=== PATIENT | male | born 1975 | race Hispanic/Latino ===

== ENCOUNTER 2021-01-10 14:23 | Inpatient (IN) | payer SELFPAY ==
[~2021-01-10 14:23] MED LIST: Iopamidol-370 76% 500 ML 1 ML ONE
[2021-01-10] MEDS ORDERED: Boostrix 0.5 ML (Tdap) VIAL ONE (14:43)
[2021-01-10 14:45] LABS: #Basophils 0.1 thou/uL (0.0-0.2); #Eosinphils 0.1 thou/uL (0.0-0.7); #Monocytes 0.7 thou/uL (0.11-0.59); #Neutrophils 5.3 thou/uL (1.40-6.50); %Basophils 0.9 % (0.0-1.0); %Eosinophils 0.7 % (0.0-10.0); %Lymphocytes 24.4 % (21.0-51.0); %Monocytes 8.9 % (0.0-10.0); %Neutrophils 65.1 % (42.0-75.0); Hemoglobin 6.4 g/dL (14.0-18.0); Mean Corpuscular HGB CONC 34.2 g/dL (32.0-36.0); Mean Corpuscular Hemoglobin 29.7 pg (27.0-31.0); Mean Corpuscular Volume 86.8 fL (78.0-98.0); Mean Platelet Volume 9.3 fL (7.4-10.4); Platelet Count 47 thou/uL (130-400); RBC Distribution Width 15.4 % (11.5-14.5); Red Blood Cell (RBC) Count 2.14 mill/uL (4.70-6.10); White Blood Cell (WBC) Count 8.1 thou/uL (4.8-10.8)
[2021-01-10 14:53] LABS: Anisocytosis SLIGHT = 6-15 cells (100X) (0-5/hpf); MDiff Complete? YES; Platelet Morphology Comment Appears Decreased; Polychromasia SLIGHT = 2-3 cells (100X) (0-2/hpf)
[2021-01-10 14:58] LABS: PTT 42.2 sec (22.9-36.1); Prothrombin Time 23.3 sec (12.0-14.7)
[2021-01-10 15:02] LABS: ALT (SGPT) 23 U/L (8-55); AST (SGOT) 126 U/L (5-34); Alkaline Phosphatase 120 U/L (40-110); Anion Gap 16 mmol/L (10-20); BUN (Urea Nitrogen) 5 mg/dL (8.9-20.6); Bilirubin, Total 1.5 mg/dL (0.2-1.2); Calc. Creatinine Clearance 0 mL/min (70-130); Calcium 6.5 mg/dL (7.8-10.44); Carbon Dioxide 17 mmol/L (22-29); Chloride 107 mmol/L (98-107); Globulin 2.9 g/dL (2.4-3.5); Glucose 171 mg/dL (70-105); Lipase 63 U/L (8-78); Potassium 3.7 mmol/L (3.5-5.1); Protein, Total 4.9 g/dL (6.0-8.3); Sodium 136 mmol/L (136-145)
[2021-01-10] MEDS ORDERED: Ondansetron PF 4 MG/2 ML Vial ONE (15:57)
[2021-01-10 16:25] LABS: SARS-CoV-2 NAA Rapid Test DETECTED (NotDetected)
[2021-01-10] MEDS ORDERED: Acetaminophen 325 MG TAB PO PRN (16:38)
[2021-01-10] MEDS ORDERED: Octreotide Acetate 50 MCG/ML AMP IVPB SCH (16:45)
[2021-01-10] MEDS ORDERED: Pantoprazole 40 MG VIAL IVP SCH (16:45)
[2021-01-10] MEDS: Sodium Chloride 0.9% 1,000 ML IV SCH ×2 (18:07→23:12)
[2021-01-10] MEDS: Octreotide Acetate 1,250 MCG in Sodium Chloride 0.9% 250 ML 250 ML IVPB SCH (18:08)
[2021-01-10] MEDS: Pantoprazole 80 MG in Sodium Chloride 0.9% 100 ML IVPB SCH (18:08)
[2021-01-10] MEDS: cefTRIAXone\\ROCEPHIN 1 GM in Sodium Chloride 0.9% 100 ML IVPB SCH (18:09)
[2021-01-10 18:24] VITALS: BMI 30.9
[2021-01-10 18:25] LABS: Hemoglobin 7.4 g/dL (14.0-18.0)
[2021-01-10 18:28] LABS: Lactic Acid 3.7 mmol/L (0.5-2.2)
[2021-01-10] MEDS ORDERED: Lorazepam 2 MG/ML VIAL SLOW IVP PRN (18:49)
[2021-01-10 21:21] LABS: Hemoglobin 7.3 g/dL (14.0-18.0); Platelet Count 13 thou/uL (130-400)
[2021-01-11 00:12] LABS: #Lymphocytes 0.4 thou/uL (1.20-3.40); #Monocytes 0.2 thou/uL (0.11-0.59); #Neutrophils 1.8 thou/uL (1.40-6.50); %Basophils 0.7 % (0.0-1.0); %Eosinophils 0.2 % (0.0-10.0); %Lymphocytes 15.4 % (21.0-51.0); %Neutrophils 74.7 % (42.0-75.0); Mean Corpuscular HGB CONC 34.4 g/dL (32.0-36.0); Mean Corpuscular Hemoglobin 30.1 pg (27.0-31.0); Mean Corpuscular Volume 87.7 fL (78.0-98.0); Mean Platelet Volume 10.2 fL (7.4-10.4); Platelet Count 19 thou/uL (130-400); Red Blood Cell (RBC) Count 2.33 mill/uL (4.70-6.10); White Blood Cell (WBC) Count 2.4 thou/uL (4.8-10.8)
[2021-01-11 00:35] LABS: Lactic Acid 3.4 mmol/L (0.5-2.2)
[2021-01-11] MEDS: Pantoprazole 80 MG in Sodium Chloride 0.9% 100 ML IVPB SCH ×3 (03:08→20:40)
[2021-01-11 03:33] LABS: #Lymphocytes 0.5 thou/uL (1.20-3.40); #Monocytes 0.2 thou/uL (0.11-0.59); #Neutrophils 1.4 thou/uL (1.40-6.50); %Eosinophils 0.1 % (0.0-10.0); %Lymphocytes 23.9 % (21.0-51.0); %Monocytes 10.2 % (0.0-10.0); %Neutrophils 65.8 % (42.0-75.0); Hemoglobin 7.2 g/dL (14.0-18.0); Mean Corpuscular HGB CONC 35.2 g/dL (32.0-36.0); Mean Corpuscular Hemoglobin 30.8 pg (27.0-31.0); Mean Corpuscular Volume 87.7 fL (78.0-98.0); Mean Platelet Volume 9.3 fL (7.4-10.4); Platelet Count 21 thou/uL (130-400); RBC Distribution Width 13.9 % (11.5-14.5); Red Blood Cell (RBC) Count 2.32 mill/uL (4.70-6.10); White Blood Cell (WBC) Count 2.2 thou/uL (4.8-10.8)
[2021-01-11 03:40] LABS: INR-International Normal Ratio 1.4; PTT 38.4 sec (22.9-36.1); Prothrombin Time 17.6 sec (12.0-14.7)
[2021-01-11 03:50] LABS: ALT (SGPT) 25 U/L (8-55); AST (SGOT) 108 U/L (5-34); Albumin 2.3 g/dL (3.5-5.0); Alkaline Phosphatase 99 U/L (40-110); Anion Gap 8 mmol/L (10-20); BUN (Urea Nitrogen) 8 mg/dL (8.9-20.6); Bilirubin, Total 1.8 mg/dL (0.2-1.2); Calc. Creatinine Clearance 201 mL/min (70-130); Calcium 6.5 mg/dL (7.8-10.44); Carbon Dioxide 25 mmol/L (22-29); Chloride 109 mmol/L (98-107); Globulin 2.6 g/dL (2.4-3.5); Glucose 138 mg/dL (70-105); Potassium 3.7 mmol/L (3.5-5.1); Protein, Total 4.9 g/dL (6.0-8.3); Sodium 138 mmol/L (136-145)
[2021-01-11 06:20] LABS: #Lymphocytes 0.5 thou/uL (1.20-3.40); #Monocytes 0.2 thou/uL (0.11-0.59); #Neutrophils 1.4 thou/uL (1.40-6.50); %Eosinophils 0.2 % (0.0-10.0); %Monocytes 7.3 % (0.0-10.0); %Neutrophils 66.6 % (42.0-75.0); Hemoglobin 7.4 g/dL (14.0-18.0); Mean Corpuscular HGB CONC 34.1 g/dL (32.0-36.0); Mean Corpuscular Hemoglobin 29.9 pg (27.0-31.0); Mean Corpuscular Volume 87.6 fL (78.0-98.0); Mean Platelet Volume 9.7 fL (7.4-10.4); Platelet Count 23 thou/uL (130-400); RBC Distribution Width 13.8 % (11.5-14.5); Red Blood Cell (RBC) Count 2.48 mill/uL (4.70-6.10)
[2021-01-11] MEDS ORDERED: Fentanyl 100 MCG/2 ML VIAL ONE (08:28)
[2021-01-11] MEDS ORDERED: Ketamine 50 MG/ML (10ML VIAL) ONE (08:28)
[2021-01-11] MEDS ORDERED: Midazolam HCl 2 mg/2 ml Vial ONE (08:28)
[2021-01-11] MEDS ORDERED: Phenylephrine 10 MG/ML VIAL ONE (08:29)
[2021-01-11] MEDS ORDERED: Dexamethasone 20 MG/5 ML VIAL ONE (08:45)
[2021-01-11] MEDS ORDERED: Rocuronium Bromide 10 MG/ML (10ML VIAL) ONE (08:45)
[2021-01-11] MEDS ORDERED: Ondansetron PF 4 MG/2 ML Vial ONE (08:45)
[2021-01-11] MEDS ORDERED: Succinylcholine 200 MG/10 ml SYRINGE FS ONE (08:45)
[2021-01-11] MEDS ORDERED: SUGAMMADEX SODIUM 200 MG/2 ML VIAL ONE (09:01)
[2021-01-11] MEDS: Sodium Chloride 0.9% 1,000 ML IV SCH ×3 (10:13→22:33)
[2021-01-11] MEDS: Octreotide Acetate 1,250 MCG in Sodium Chloride 0.9% 250 ML 250 ML IVPB SCH (11:01)
[2021-01-11] MEDS: Ondansetron PF 4 MG/2 ML Vial IVP PRN ×2 (11:41→18:37)
[2021-01-11] MEDS: Multivitamins, Adult 10 ML, Folic Acid 1 MG, Thiamine HCl 100 MG in Dextrose 5 %-0.45 %... IV SCH (12:36)
[2021-01-11] MEDS: Thiamine 100 MG TAB PO SCH (12:37)
[2021-01-11] MEDS: Zinc Sulfate 220 MG CAP PO SCH (12:37)
[2021-01-11] MEDS: Ascorbic Acid 500 mg Chewable Tablet PO SCH (12:37)
[2021-01-11 13:31] LABS: Hemoglobin 9.1 g/dL (14.0-18.0); Platelet Count 19 thou/uL (130-400)
[2021-01-11] MEDS: cefTRIAXone\\ROCEPHIN 1 GM in Sodium Chloride 0.9% 100 ML IVPB SCH (15:26)
[2021-01-11 18:12] LABS: Hemoglobin 9.3 g/dL (14.0-18.0); Platelet Count 22 thou/uL (130-400)
[2021-01-11] MEDS: Cholecalciferol 1,000 UNITS (25 MCG) TAB PO SCH (20:29)
[2021-01-11 23:49] LABS: Hemoglobin 8.8 g/dL (14.0-18.0); Platelet Count 24 thou/uL (130-400)
[2021-01-12 03:53] LABS: Reticulocyte Count 3.4 % (0.5-1.5)
[2021-01-12 04:16] LABS: ALT (SGPT) 25 U/L (8-55); AST (SGOT) 100 U/L (5-34); Albumin 2.6 g/dL (3.5-5.0); Alkaline Phosphatase 102 U/L (40-110); Anion Gap 9 mmol/L (10-20); BUN (Urea Nitrogen) 7 mg/dL (8.9-20.6); Calc. Creatinine Clearance 185 mL/min (70-130); Calcium 6.8 mg/dL (7.8-10.44); Carbon Dioxide 23 mmol/L (22-29); Chloride 107 mmol/L (98-107); Globulin 2.9 g/dL (2.4-3.5); Glucose 125 mg/dL (70-105); Iron 24 ug/dL (65-175); Potassium 3.7 mmol/L (3.5-5.1); Protein, Total 5.5 g/dL (6.0-8.3); Sodium 135 mmol/L (136-145)
[2021-01-12] MEDS: Sodium Chloride 0.9% 1,000 ML IV SCH ×2 (08:16→16:41)
[2021-01-12] MEDS: Octreotide Acetate 1,250 MCG in Sodium Chloride 0.9% 250 ML 250 ML IVPB SCH (09:28)
[2021-01-12] MEDS: Pantoprazole 80 MG in Sodium Chloride 0.9% 100 ML IVPB SCH (10:15)
[2021-01-12] MEDS: Zinc Sulfate 220 MG CAP PO SCH (12:46)
[2021-01-12] MEDS: Thiamine 100 MG TAB PO SCH (12:46)
[2021-01-12] MEDS: Ascorbic Acid 500 mg Chewable Tablet PO SCH (12:46)
[2021-01-12] MEDS: Multivitamins, Adult 10 ML, Folic Acid 1 MG, Thiamine HCl 100 MG in Dextrose 5 %-0.45 %... IV SCH (13:34)
[2021-01-12] MEDS: cefTRIAXone\\ROCEPHIN 1 GM in Sodium Chloride 0.9% 100 ML IVPB SCH (16:41)
[2021-01-12] MEDS ORDERED: Ferrous Sulfate 325 MG TAB PO SCH (19:30)
[2021-01-12] MEDS: Cholecalciferol 1,000 UNITS (25 MCG) TAB PO SCH (20:47)
[2021-01-13 05:58] LABS: Platelet Count 26 thou/uL (130-400)
[2021-01-13] MEDS: Ferrous Sulfate 325 MG TAB PO SCH ×2 (08:17→16:56)
[2021-01-13] MEDS: Ascorbic Acid 500 mg Chewable Tablet PO SCH (11:12)
[2021-01-13] MEDS: Zinc Sulfate 220 MG CAP PO SCH (11:12)
[2021-01-13] MEDS: Multivitamins, Adult 10 ML, Folic Acid 1 MG, Thiamine HCl 100 MG in Dextrose 5 %-0.45 %... IV SCH (11:23)
[2021-01-13] MEDS ORDERED: Thiamine 100 MG TAB PO SCH (12:00)
[2021-01-13] MEDS: Octreotide Acetate 1,250 MCG in Sodium Chloride 0.9% 250 ML 250 ML IVPB SCH (15:04)
[2021-01-13] MEDS: cefTRIAXone\\ROCEPHIN 1 GM in Sodium Chloride 0.9% 100 ML IVPB SCH (16:56)
[2021-01-13] MEDS: Cholecalciferol 1,000 UNITS (25 MCG) TAB PO SCH (20:19)
[2021-01-14 06:41] LABS: Platelet Count 21 thou/uL (130-400)
[2021-01-14] MEDS: Ferrous Sulfate 325 MG TAB PO SCH (08:33)
[2021-01-14 11:13] VITALS: TEMP 98.3
[2021-01-14 13:54] VITALS: BP 114/74
== END 2021-01-14 13:49 | disposition home or self-care (01) | DRG 441 ==
LOC: ERS 14:23 → CCU 16:28 → EDBD 16:28 → T4-B 01-12 15:29
PROVIDERS: ADMIT Internal Medicine; ATTEND Family Medicine
PROC: 0D9670Z Drainage of Stomach with Drainage Device, Via Natural or Artificial Opening (ICD-10-PCS; 2021-01-10)
PROC: 8E0ZXY6 Isolation (ICD-10-PCS; 2021-01-10)
PROC: 30233M1 Transfusion of Nonautologous Plasma Cryoprecipitate into Peripheral Vein, Percutaneous Approach (ICD-10-PCS; 2021-01-10)
PROC: 30233N1 Transfusion of Nonautologous Red Blood Cells into Peripheral Vein, Percutaneous Approach (ICD-10-PCS; 2021-01-10)
PROC: 30233R1 Transfusion of Nonautologous Platelets into Peripheral Vein, Percutaneous Approach (ICD-10-PCS; 2021-01-10)
PROC: 06L38CZ Occlusion of Esophageal Vein with Extraluminal Device, Via Natural or Artificial Opening Endoscopic (ICD-10-PCS; principal; 2021-01-11)
DX: K76.6 Portal hypertension (principal); I85.11 Secondary esophageal varices with bleeding; R57.8 Other shock; U07.1 COVID-19; D62 Acute posthemorrhagic anemia; D61.818 Other pancytopenia; D68.8 Other specified coagulation defects; K70.31 Alcoholic cirrhosis of liver with ascites; I86.4 Gastric varices; W18.30XA Fall on same level, unspecified, initial encounter; S00.01XA Abrasion of scalp, initial encounter; K31.89 Other diseases of stomach and duodenum; F10.20 Alcohol dependence, uncomplicated; Z71.41 Alcohol abuse counseling and surveillance of alcoholic; Y92.012 Bathroom of single-family (private) house as the place of occurrence of the external cause
CPT/HCPCS: 36415; 36430; 70450; 71260; 72125; 74177; 80053; 80307; 82274; 82607; 82746; 83540; 83605; 83690; 85014; 85018; 85025; 85046; 85049; 85610; 85730; 86850; 86900; 86901; 90471; 90715; 93005; 96365; 96375; C9113; G0390; J0690; J0696; J1100; J2060; J2250; J2354; J2370; J2405; J3010; J3411; J3490; J7042; J7050; P9016; P9035; P9048; Q9967; U0002; U0005